=== PATIENT | male | born 1960 | race Caucasian/White ===

== ENCOUNTER 2018-07-07 15:48 | Emergency (ER) | payer OTHER ==
--- NOTE | 2018-07-07 17:46 | CRLCR ---
INDICATION: dyspnea TECHNIQUE: Chest 2 views. COMPARISON: None. FINDINGS: Cardiovascular and mediastinum: Heart size and vasculature are normal in caliber and appearance. Mediastinum is within normal limits. Lungs and pleural spaces: Lungs are clear. No sign of infiltrate or mass. No sign of pleural effusion. No pneumothorax. Bones and soft tissues: No significant findings. IMPRESSION: Unremarkable chest. Dictated by: Prabhjot Orellana MD @ 07/07/2018 17:43:50 (Electronically Signed)
--- NOTE | 2018-07-07 18:16 | EDM.PDOC ---
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 It was very intense for about 5 minutes and then lessened but since that time he has had pain localized to the lateral left chest , worse with breathing, movement, or laying on his left side. He just expected it to get better but after one week it has not, he has not taken any anti- inflammatories or medication. He still has pain with breathing but no shortness of breath, cough, fever or chills or abdominal pain. Onset: Sudden Duration: Day(s): (7 days) Location: Reports: Chest (Left lateral) Quality: Reports: Sharp Improves with: Reports: Other (Feels better with activity, seems worse in the morning) Associated Symptoms: Reports: No Other Symptoms - Related Data Allergies Allergy/AdvReac Type Severity Reaction Status Date / Time No Known Allergies Allergy Verified 07/07/18 16:58 Home Meds: Home Meds NK [No Known Home Meds] 07/07/18 [History] Past Medical History HEENT History: Reports: Hard of Hearing Genitourinary History: Reports: Prostate Disorder Dermatologic History: Reports: Other (See Below) Other Dermatologic History: rash on shins - Past Surgical History GI Surgical History: Reports: Appendectomy Male Surgical History: Reports: Prostate Biopsy Social & Family History - Tobacco Use Smoking Status *Q: Current Every Day Smoker Years of Tobacco use: 40 Packs/Tins Daily: 1 - Caffeine Use Caffeine Use: Reports: Coffee - Alcohol Use Number of Drinks Per Day: 2 Date of Last Drink: 07/06/18 Time of Last Drink: 20:00 - Recreational Drug Use Recreational Drug Use: No ED ROS GENERAL - Review of Systems Review Of Systems: See Below Constitutional: Denies: Fever, Chills HEENT: Reports: No Symptoms Respiratory: Reports: Pleuritic Chest Pain. Denies: Shortness of Breath, Cough , Sputum Cardiovascular: Reports: Chest Pain (As in history of present illness) GI/Abdominal: Denies: Abdominal Pain, Nausea, Vomiting : Reports: No Symptoms Skin: Reports: No Symptoms. Denies: Rash (No rash over painful area) Neurological: Reports: No Symptoms Psychiatric: Reports: No Symptoms ED EXAM, GENERAL - Physical Exam Exam: See Below Exam Limited By: No Limitations General Appearance: Alert, No Apparent Distress Head: Atraumatic Neck: Supple Respiratory/Chest: No Respiratory Distress, Lungs Clear. No: Chest Non-Tender ( Localized left lateral chest tenderness is present with palpation, no crepitus) Cardiovascular: Regular Rate, Rhythm Extremities: No Pedal Edema Neurological: Alert, Oriented Skin Exam: Warm, Dry Course - Vital Signs Last Recorded V/S: Last Vital Signs Temp 97.8 F 07/07/18 17:09 Pulse 77 07/07/18 17:09 Resp 11 L 07/07/18 17:09 BP 127/86 07/07/18 17:09 Pulse Ox 96 07/07/18 17:09 - Re-Assessments/Exams Free Text/Narrative Re-Assessment/Exam: 07/07/18 18:57 Two-view chest x-ray was obtained which is completely normal, no further workup needed. Patient was reassured and is can take anti-inflammatories twice daily for the next 5-7 days and recheck if not improving in one week. He can return anytime sooner if worsening such as difficulty breathing or fever. Departure - Departure Time of Disposition: 18:27 Disposition: Home, Self-Care 01 Condition: Good Clinical Impression: Left-sided chest wall pain - Discharge Information Instructions: Chest Wall Pain, [id number] Referrals: PCP,None [Primary Care Provider] - Forms: ED Department Discharge Care Plan Goals: Naproxen twice daily for the next week, such as 2 Aleve twice daily and increase activity as tolerated. Consider rechecking next week if not improving satisfactorily, or return anytime sooner if worsening.
== END 2018-07-07 18:27 | disposition home or self-care (01) ==
LOC: JP.ED 15:48
DX: R07.89 Other chest pain (principal); F17.210 Nicotine dependence, cigarettes, uncomplicated
CPT/HCPCS: 71046; 99284-25